=== PATIENT | male | born 1985 | race Caucasian/White ===

== ENCOUNTER 2019-08-03 17:45 | Emergency (ER) | payer MEDICAID ==
[~2019-08-03] VITALS: Ht 175.3 cm; Wt 99.8 kg
[2019-08-03 17:47] VITALS: BP 135/75
--- NOTE | 2019-08-03 17:50 | NUR ---
PT TO BED 2 WITH STEADY GAIT
--- NOTE | 2019-08-03 18:04 | NUR ---
DR YOUNG AT BEDSIDE EXAMINING PATIENT.
--- NOTE | 2019-08-03 18:06 | NUR ---
34 Y/O M C/O TESTICULAR PAIN X1 WEEK. PT DENIES N/V FEVER. PATIENT DESCRIBES PAIN 7/10, CONSTANT SHARP PAIN. PT DENIES PAIN WITH URINATION, OR RECENT INJURY. PT STATES HE HAD THIS PAIN IN THE PAST AND WAS GIVEN ANTIBIOTICS. PT GIVEN A UA CUP FOR A URINE SAMPLE. FRIEND AT BEDSIDE. [facility]NA
--- NOTE | 2019-08-03 18:19 | NUR ---
UA COLLECTED, SENT TO LAB.
[2019-08-03 18:39] LABS: APPEARANCE,URINE CLEAR (CLEAR); BILIRUBIN,URINE NEGATIVE (NEGATIVE); BLOOD, URINE NEGATIVE (NEGATIVE); COLOR,URINE YELLOW (YELLOW); LEUKOCYTE ESTERASE ,URINE NEGATIVE (NEGATIVE); NITRITE, URINE NEGATIVE (NEGATIVE); UGLUCOSE NEGATIVE (NEGATIVE)
--- NOTE | 2019-08-03 18:49 | NUR ---
BOX PRINTER AT BEDSIDE PERFORMING ORDERED TEST.
--- NOTE | 2019-08-03 19:06 | NUR ---
REPORT RECEIVED FROM MORRIS TAVERAS.
--- NOTE | 2019-08-03 19:06 | NUR ---
REPORT GIVEN TO MORRIS BROOKS FOR CHANGE OF SHIFT.
--- NOTE | 2019-08-03 19:18 | NUR ---
PATIENT IS SITTING UPRIGHT AND QUIETLY IN BED. WILL CONTINUE TO MONITOR.
--- NOTE | 2019-08-03 20:33 | NUR ---
ERMD AT BEDSIDE EVALUATING PATIENT.
[2019-08-03] MEDS ORDERED: KETOROLAC 30 MG/ML VIAL IM ONE (20:40)
[2019-08-03] MEDS ORDERED: AZITHROMYCIN 250 MG TAB PO ONE (20:40)
[2019-08-03] MEDS ORDERED: cefTRIAXone 250 MG in LIDOCAINE MPF 1% 0.9 ML IM ONE (20:40)
[2019-08-03] MEDS ORDERED: cefTRIAXone 250 MG VIAL ONE (20:51)
[2019-08-03] MEDS ORDERED: LIDOCAINE MPF 1% 5 ML ONE (20:51)
[2019-08-03 21:09] VITALS: BP 131/66
--- NOTE | 2019-08-03 21:09 | NUR ---
Patient discharged with v/s stable. Written and verbal after care instructions given and explained. Patient verbalized understanding. Ambulatory with steady gait. All questions addressed prior to discharge. Advised to follow up with PMD.
[2019-08-05 06:14] LABS: CHLAMYDIA TRACHOMATIS AMP DNA Negative (Negative)
== END 2019-08-03 21:09 | disposition home or self-care (01) ==
LOC: MED 17:45
DX: N45.3 Epididymo-orchitis (principal); N50.812 Left testicular pain; N50.811 Right testicular pain
CPT/HCPCS: 36415; 76870; 81003; 87491; 96372; 99284; J0696; J1885; J2001; Q0092; 81002

== ENCOUNTER 2021-02-25 16:55 | Emergency (ER) | payer MEDICAID ==
[~2021-02-25] VITALS: Ht 172.7 cm; Wt 68.0 kg
[2021-02-25 17:11] VITALS: BP 126/78
[2021-02-25] MEDS ORDERED: KETOROLAC 30 MG/ML VIAL IM ONE (18:30)
[2021-02-25] MEDS ORDERED: IBUP-2213 PO (19:05)
[2021-02-25] MEDS ORDERED: CAPS1ADH5 TP (19:05)
[2021-02-25 19:17] VITALS: BP 126/78
--- NOTE | 2021-02-25 19:26 | NUR ---
Patient discharged with v/s stable. Written and verbal after care instructions given and explained. Patient alert, oriented and verbalized understanding of instructions. Ambulatory with steady gait. All questions addressed prior to discharge. ID band removed. Patient advised to follow up with PMD. Rx of SALONPAS, AND IBUPROFEN given. Patient educated on indication of medication including possible reaction and side effects. Opportunity to ask questions provided and answered.
== END 2021-02-25 19:26 | disposition home or self-care (01) ==
LOC: MED 16:55
DX: S70.01XA Contusion of right hip, initial encounter (principal); W19.XXXA Unspecified fall, initial encounter; Y93.89 Activity, other specified; Y92.89 Other specified places as the place of occurrence of the external cause; Y99.8 Other external cause status
CPT/HCPCS: 72170; 73502; 96372; 99284; J1885

== ENCOUNTER 2021-07-18 11:07 | Emergency (ER) | payer SELFPAY ==
[~2021-07-18] VITALS: Ht 172.7 cm; Wt 95.3 kg
[~2021-07-18 11:07] MED LIST: CAPS1ADH5 TP; IBUP-2213 PO
[2021-07-18 11:41] VITALS: BP 121/71
[2021-07-18] MEDS ORDERED: ONDA-188 SL ×2 (11:51→19:02)
--- NOTE | 2021-07-18 12:06 | NUR ---
NOVEL SWAB COLLECTED AND WALKED TO LAB
[2021-07-18] MEDS ORDERED: DOXY-487 PO ×2 (12:35→19:02)
--- NOTE | 2021-07-18 13:25 | NUR ---
Patient discharged with v/s stable. Written and verbal after care instructions given and explained. Patient alert, oriented and verbalized understanding of instructions. Ambulatory with steady gait. All questions addressed prior to discharge. ID band removed. Patient advised to follow up with PMD. Rx of DOXYCYCLINE HYCLATE AND ZOFRAN given. Patient educated on indication of medication including possible reaction and side effects. Opportunity to ask questions provided and answered.
[2021-07-18 13:35] VITALS: BP 143/80
== END 2021-07-18 13:25 | disposition home or self-care (01) ==
LOC: MED 11:07
DX: U07.1 COVID-19 (principal); J12.82 Pneumonia due to coronavirus disease 2019
CPT/HCPCS: 71045; 99284; U0003

== ENCOUNTER 2021-12-04 07:42 | Emergency (ER) | payer MEDICAID, OTHER ==
[~2021-12-04] VITALS: Ht 175.3 cm; Wt 103.4 kg
[~2021-12-04 07:42] MED LIST changes: +DOXY-487 PO; +ONDA-188 SL
[2021-12-04 07:46] VITALS: BP 141/88
[2021-12-04] MEDS ORDERED: KETOROLAC 60 MG/2 ML VIAL IM ONE (08:15)
[2021-12-04] MEDS ORDERED: DEXAMETHASONE 4 MG/ML VIAL PO ONE (08:15)
[2021-12-04] MEDS ORDERED: BENZ200C4 PO (09:40)
[2021-12-04] MEDS ORDERED: BENZ-300 PO (09:40)
[2021-12-04] MEDS ORDERED: NAPR-54 PO (09:40)
[2021-12-04 10:18] VITALS: BP 126/78
== END 2021-12-04 10:19 | disposition home or self-care (01) ==
LOC: MED 07:42
DX: B34.9 Viral infection, unspecified (principal); Z20.822 Contact with and (suspected) exposure to COVID-19; N50.812 Left testicular pain; G89.29 Other chronic pain; Z79.1 Long term (current) use of non-steroidal anti-inflammatories (NSAID); Z79.899 Other long term (current) drug therapy; Z79.2 Long term (current) use of antibiotics
CPT/HCPCS: 76870; 81002; 87081; 87426; 96372; 99284; J1100; J1885; Q0092

== ENCOUNTER 2021-12-17 07:27 | Emergency (ER) | payer MEDICAID ==
[~2021-12-17] VITALS: Ht 180.3 cm; Wt 105.5 kg
[~2021-12-17 07:27] MED LIST changes: +BENZ-300 PO; +BENZ200C4 PO; +NAPR-54 PO
[2021-12-17 07:29] VITALS: BP 142/82
--- NOTE | 2021-12-17 07:33 | NUR ---
PT AMBULATED TO BED 02.
--- NOTE | 2021-12-17 08:16 | NUR ---
36 Y/O MALE BIB SELF C/O 8/10 EARS PAIN, HEADACHE, SORE THROAT X 1 MONTH. PT DENIES FEVER OR CHILLS. PT DENIES CHEST PAIN, SOB. PMH: DENIES.
[2021-12-17] MEDS ORDERED: AMOX-1230 PO (08:18)
[2021-12-17 08:32] VITALS: BP 135/78
--- NOTE | 2021-12-17 08:33 | NUR ---
Patient discharged with v/s stable. Written and verbal after care instructions given and explained. Patient alert, oriented and verbalized understanding of instructions. Ambulatory with steady gait. All questions addressed prior to discharge. ID band removed. Patient advised to follow up with PMD. Rx of AMOX-CLAV 875-125MG given. Patient educated on indication of medication including possible reaction and side effects. Opportunity to ask questions provided and answered.
== END 2021-12-17 08:32 | disposition home or self-care (01) ==
LOC: MED 07:27
DX: H92.03 Otalgia, bilateral (principal); J02.9 Acute pharyngitis, unspecified; Z79.899 Other long term (current) drug therapy
CPT/HCPCS: 99283

== ENCOUNTER 2022-03-11 15:49 | Emergency (ER) | payer MEDICAID ==
[~2022-03-11] VITALS: Ht 170.2 cm; Wt 112.0 kg
[~2022-03-11 15:49] MED LIST changes: +AMOX-1230 PO
[2022-03-11 16:06] VITALS: BP 132/89
--- NOTE | 2022-03-11 16:12 | NUR ---
Patient ambulated to bed 7.
--- NOTE | 2022-03-11 16:20 | NUR ---
36 y/o male bib self with c/o high blood pressure. Patient was at a specialist office and was told he had high blood pressure and to get evaluated. Patient is unsure what his BP was. Patient has 5/10 pain to his throat and was being seen at specialisty for his throat. Current BP is 133/82. Medical History: Denies NKDA
--- NOTE | 2022-03-11 16:30 | NUR ---
PATIENT LEFT WITHOUT BEING SEEN BY DR. NUÑEZ. NO FURTHER CARE PROVIDED FOR PATIENT.
--- NOTE | 2022-03-11 16:30 | NUR ---
Patient was noted to walk out of ER. Patient did not say where he was going or if he will be back.
== END 2022-03-11 16:30 | disposition left against medical advice (07) ==
LOC: MED 15:49
DX: I10 Essential (primary) hypertension (principal); Z53.21 Procedure and treatment not carried out due to patient leaving prior to being seen by health care provider

== ENCOUNTER 2022-09-16 12:18 | Emergency (ER) | payer MEDICAID ==
[~2022-09-16] VITALS: Ht 180.3 cm; Wt 116.1 kg
[2022-09-16 12:30] VITALS: BP 124/82
--- NOTE | 2022-09-16 12:30 | NUR ---
37 yo/m presents to ED w c/o cough, sob, chest pain 6/10 constant pressure like x2 weeks, worsening when coughing. pt denies congestion, fevers, chills, n/v/d or other symptoms at this time. breathing even and unlabored o2 sat >95%, cap refil <3sec, vss. benjamin tolentino made aware. pmh: denies allergies: denies meds: robitussin x1 hour ago
[2022-09-16] MEDS ORDERED: KETOROLAC 30 MG/ML VIAL IM ONE (13:05)
[2022-09-16] MEDS ORDERED: IBUP-2213 PO (13:37)
[2022-09-16] MEDS ORDERED: PROM118S5 PO (13:37)
[2022-09-16] MEDS ORDERED: ACET-8211 PO (13:37)
[2022-09-16] MEDS ORDERED: FAMO-92 PO (13:38)
--- NOTE | 2022-09-16 13:39 | NUR ---
covid and flu swabs sent to lab.
[2022-09-16 14:00] VITALS: BP 121/78
--- NOTE | 2022-09-16 14:01 | NUR ---
Patient discharged with v/s stable. Written and verbal after care instructions given and explained. Patient alert, oriented and verbalized understanding of instructions. Ambulatory with steady gait. All questions addressed prior to discharge. ID band removed. Patient advised to follow up with PMD. Rx of pepcid, acetaminophen, promethazine/dexomethorphan given. Patient educated on indication of medication including possible reaction and side effects. Opportunity to ask questions provided and answered.
== END 2022-09-16 14:01 | disposition home or self-care (01) ==
LOC: MED 12:18
DX: J20.8 Acute bronchitis due to other specified organisms (principal); Z20.822 Contact with and (suspected) exposure to COVID-19; Z79.899 Other long term (current) drug therapy
CPT/HCPCS: 71045; 87426; 87804; 93005; 96372; 99285; J1885